=== PATIENT | female | born 1945 | race Caucasian/White ===

== ENCOUNTER → 2021-06-05 07:42 | Outpatient (CLI) | payer OTHER, SELFPAY ==
--- NOTE | 2021-06-05 | DI.ECHO.S_ITS ---
[facility]---------+ [facility] +---------+ : : [address] : [place] [address] : : : : [phone] : : : : Phone: [phone]+ Echocardiogram Report + + :Name: KATHERINE PETER Study Date: 06/05/2021 Height: 67 in : :[facility] ReadingLocation: Weight: 128 lb : : Gender: Female BSA: 1.7 m2 : :: 1945 Age: 76 yrs BP: 193/113 mmHg: :Reason For Study: Aortic, Ascending Aneurysm : :Ordering Physician: SALVATORE, : :DEJON Performed By: Josue Hawk : :Referring: DEJON CHASE : + + Interpretation Summary The ejection fraction is estimated to be 55-60%. The left atrium is severely dilated. There is mild mitral regurgitation. The aortic valve is mildly calcified. There is mild aortic stenosis. The ascending aorta is moderately enlarged. Procedure: A two-dimensional transthoracic echocardiogram with color flow and Doppler was performed. The study quality was technically adequate. There is no prior echocardiogram noted for this patient. Left Ventricle: The left ventricle is normal in size and wall thickness. Left ventricular systolic function is normal. The ejection fraction is estimated to be 55-60%. There are no focal wall motion abnormalities. Diastolic function could not be accurately assessed due to unobtainable data. Right Ventricle: The right ventricle is normal in size and function. Atria: The left atrium is severely dilated. Right atrial size is normal. The interatrial septum grossly appears intact with no obvious evidence for an atrial septal defect. Mitral Valve: There is mild mitral annular calcification. There is mild mitral regurgitation. Aortic Valve: The aortic valve is mildly calcified. There is mild to moderately reduced leaflet mobility. There is mild aortic stenosis. The aortic valve mean gradient is 13 mmHg. There is mild aortic regurgitation. Tricuspid Valve: The tricuspid valve is normal in structure and function. There is trace tricuspid regurgitation. Pulmonary artery pressures cannot be estimated because of the lack of a measurable TR jet velocity. Pulmonic Valve: The pulmonic valve is normal in structure and function. There is a trace or physiologic amount of pulmonic regurgitation. Great Vessels: The aortic root is normal size. The ascending aorta is moderately enlarged. The IVC is of normal diameter and collapses greater than 50% with a sniff. This suggests a low right atrial pressure of 3 mm Hg. Pericardium/ Pleura There is no pericardial effusion. There is no pleural effusion. MMode/2D Measurements & Calculations LVIDd: 5.1 cm LVOT diam: 2.0 cm LVIDs: 3.4 cm Ao root diam: 3.5 cm FS: 33.4 % asc Aorta Diam: 4.5 cm IVSd: 0.93 cm LVPWd: 0.82 cm LV loera. diameter/BSA (cm/m^2): 3.1 LV sys. diameter/BSA (cm/m^2): 2.0 LA A2 area: 25.8 cm2 RA long axis: 5.2 cm LA A4 area: 25.3 cm2 RA area: 17.4 cm2 LA length (vol): 5.8 cm RA vol: 49.8 ml LA vol: 96.4 ml RA : 29.8 ml/m2 LA vol index: 57.6 ml/m2 TAPSE: 3.2 cm LA A4C-A/L_phl: 28.0 cm2 Doppler Measurements & Calculations Ao V2 max: 246.7 cm/sec LVOT Max Anthony: 106.1 cm/sec Ao V2 mean: 172.8 cm/sec LV V1 max P.5 mmHg Ao max P.3 mmHg LV V1 VTI: 25.9 cm Ao mean P.4 mmHg ANDREA(I,D): 1.5 cm2 Ao V2 VTI: 57.9 cm ANDREA(V,D): 1.4 cm2 sev ratio: 0.45 ANDREA indexed to BSA (cm^2/m^2): 0.87 AI P1/2t: 548.3 msec AI dec slope: 272.3 cm/sec2 MV E max anthony: 45.8 cm/sec SV(LVOT): 84.4 ml MV A max anthony: 104.0 cm/sec MV E/A: 0.44 Med Peak E' Anthony: 2.9 cm/sec E/E' med: 15.7 Lat Peak E' Anthony: 7.4 cm/sec E/E' lat: 6.2 E/e' average: 10.9 MV dec time: 0.34 sec Reading Physician:12:20 PM
== END ==
PROVIDERS: Referring Provider Physician Assistant; Visit Provider Physician Assistant
DX: I71.2 Thoracic aortic aneurysm, without rupture (principal); I08.0 Rheumatic disorders of both mitral and aortic valves
CPT/HCPCS: 93306